=== PATIENT | male | born 1990 | race Caucasian/White ===

== ENCOUNTER 2019-04-03 14:50 | Emergency (ER) | payer OTHER ==
[2019-04-03 15:05] VITALS: TEMP 98
[2019-04-03 16:48] LABS: Appearance,Urine Clear (Clear); Bilirubin,Urine Negative (Negative); Blood,Urine Negative (Negative); Color,Urine Yellow; Glucose,Urine (UA) Negative (Negative); Ketones,Urine Negative (Negative); Leukocyte Esterase,Urine Negative (Negative); Nitrite,Urine Negative (Negative); Protein,Urine Negative (Negative); Specific Gravity,Urine 1.021 (1.001-1.035); Urobilinogen,Urine <2.0 mg/dL (<2.0)
--- NOTE | 2019-04-03 17:10 | US ---
EXAMINATION TYPE: US scrotum with doppler. Grayscale and color Doppler Duplex imaging performed of carlos mccormack scrotum. DATE OF EXAM: 04/03/2019 COMPARISON: NONE CLINICAL HISTORY: testicular pain x 1 month. Pt states testicular pain for quite some time, denies sw elling EXAM MEASUREMENTS: TESTICLES: Right Testicle: 3.9 x 1.8 x 1.9 cm Left Testicle: 2.7 x 1.2 x 2.1 cm EPIDIDYMIS HEAD: Right Epididymis: 1.2 cm Left Epididymis: Unable to visualize Doppler performed to assess for testicular vascularity; good bilateral color flow and waveforms are s een. There is no evidence of testicular torsion. Presence of hydroceles: No Presence of varicoceles: No Left testicle smaller in size when compared to right/ Otherwise no other abnormality could be appre ciated to account for pt's symptoms IMPRESSION: Small left testicle. No testicular torsion or mass. No free fluid.
[2019-04-03] MEDS ORDERED: AZITHROMYCIN 500 MG TAB PO STA (17:31)
[2019-04-03] MEDS ORDERED: cefTRIAXone 250 MG VIAL IM STA (17:31)
--- NOTE | 2019-04-03 17:32 | ED ---
Abdominal Pain HPI - General Chief Complaint: Abdominal Pain Stated Complaint: Male Time Seen by Provider: 04/03/19 16:00 Source: patient Mode of arrival: ambulatory Limitations: no limitations - History of Present Illness Initial Comments: 29-year-old male presented emergency department for evaluation of testicular pain 1 month. Patient states he has had testicular pain for the past month. Patient states it happens during intercourse. He states is mostly left-sided and the posterior aspect. Patient denies dysuria urgency frequency hematuria. Patient denies any weight loss abdominal pain pain in the groin. He states he only stated in triage a pain is his groin because he did not want to disclose that it was testicular pain. Patient denies any fevers night sweats. Patient denies a current concern for sexually transmitted diseases states he has been recently tested. Patient denies any penile lesions or any other complaints. Remaining review of systems negative. Upon arrival patient appears well now signs of acute distress. - Related Data Previous Rx's Medication Instructions Recorded Sulfamethox-Tmp 800-160Mg [Bactrim 1 tab PO Q12HR 10 Days #20 tab 04/03/19 DS 800-160 mg] Allergies Allergy/AdvReac Type Severity Reaction Status Date / Time No Known Allergies Allergy Verified 04/03/19 16:08 Review of Systems ROS Statement: Those systems with pertinent positive or pertinent negative responses have been documented in the HPI. ROS Other: All systems not noted in ROS Statement are negative. Past Medical History Past Medical History: Thyroid Disorder Additional Past Medical History / Comment(s): Asthma History of Any Multi-Drug Resistant Organisms: None Reported Past Surgical History: No Surgical Hx Reported Past Psychological History: Bipolar Smoking Status: Current some day smoker Past Alcohol Use History: None Reported Past Drug Use History: None Reported General Exam - General Exam Comments Initial Comments: General: The patient is awake and alert, in no distress, and does not appear acutely ill. Eye: Pupils are equal, round and reactive to light, extra-ocular movements are intact. No nystagmus. There is normal conjunctiva bilaterally. No signs of icterus. Cardiovascular: There is a regular rate and rhythm. No murmur, rub or gallop is appreciated. Respiratory: Lungs are clear to auscultation, respirations are non-labored, breath sounds are equal. No wheezes, stridor, rales, or rhonchi. Gastrointestinal: Soft, non-distended, non-tender abdomen without masses or organomegaly noted. There is no rebound or guarding present. Patient is tenderness to palpation of the left epididymis. There is no redness or erythema plus Cordar[place]. Patient has smaller left testicle in comparison with the right. Patient has no scrotal swelling or evidence of direct or indirect inguinal hernia. Cremasterics reflex intact. Vertical lie. Musculoskeletal: Normal ROM, no tenderness. Strength 5/5. Sensation intact. Pulses equal bilaterally 2+. Neurological: A&O x 3. CN II-XII intact grossly, There are no obvious motor or sensory deficits. Coordination appears grossly intact. Speech is normal. Skin: Skin is warm and dry and no rashes or lesions are noted. Psychiatric: Cooperative, appropriate mood & affect, normal judgment. Limitations: no limitations Course Vital Signs 04/03/19 04/03/19 04/03/19 15:03 15:59 17:37 Temperature 98.0 F Pulse Rate 88 86 Respiratory 18 18 16 Rate Blood Pressure 135/73 130/72 O2 Sat by Pulse 100 98 Oximetry Medical Decision Making - Medical Decision Making 29-year-old male presenting for chief complaint of testicular pain for 1 month. Patient has tenderness to palpation of the left epididymis. No redness. Patient denies fevers. Patient denies perineal tenderness. All show negative for acute process there is noted left sided smaller testicle to person with the right. This is palpated on examination. No findings of hernia on examination. Urinalysis unremarkable. Given the tenderness over the epididymis we will treat patient for epididymitis patient history for sexual transmitted diseases I prescription for Augmentin for 7 days. Patient is to follow up with urology. Return parameters discussed the patient is discharged appearing well case discussed with him prior Dr. Garner prior to d/c - Lab Data Lab Results 04/03/19 Range/Units 16:00 Urine Color Yellow Urine Appearance Clear (Clear) Urine pH 7.0 (5.0-8.0) Ur Specific [place] 1.021 (1.001-1.035) Urine Protein Negative (Negative) Urine Glucose (UA) Negative (Negative) Urine Ketones Negative (Negative) Urine Blood Negative (Negative) Urine Nitrite Negative (Negative) Urine Bilirubin Negative (Negative) Urine Urobilinogen <2.0 (<2.0) mg/dL Ur Leukocyte Esterase Negative (Negative) Disposition Clinical Impression: Testicular pain, left Disposition: HOME SELF-CARE Condition: Good Instructions (If sedation given, give patient instructions): Epididymitis (ED), Testicle Pain (ED) Additional Instructions: Please use medication as discussed. Please follow-up with urology in the next 1-2 weeks. Please return to emergency room if the symptoms increase or worsen or for any other concerns. Prescriptions: Sulfamethox-Tmp 800-160Mg [Bactrim DS 800-160 mg] 1 tab PO Q12HR 10 Days #20 tab Is patient prescribed a controlled substance at d/c from ED?: No Referrals: None,Stated [Primary Care Provider] - 1-2 days Luca Booth MD [STAFF PHYSICIAN] - As Soon As Possible Time of Disposition: 17:29
[2019-04-03 17:41] VITALS: BP 130/72; PULSE 86; RESP 16
== END 2019-04-03 17:37 | disposition home or self-care (01) ==
LOC: EC 14:50
DX: N50.812 Left testicular pain (principal); F17.200 Nicotine dependence, unspecified, uncomplicated
CPT/HCPCS: 81003; 93975; 76870; 99284; 96372; J0696

== ENCOUNTER → 2019-12-21 | Outpatient (CLI) | payer OTHER ==
[2019-12-21 13:57] LABS: Basophils # (A) 0.1 k/uL (0-0.2); Basophils % (A) 1 %; Eosinophils # (A) 0.5 k/uL (0-0.7); Eosinophils % (A) 9 %; HCT 45.8 % (39.0-53.0); HGB 15.3 gm/dL (13.0-17.5); Lymphocytes # (A) 1.4 k/uL (1.0-4.8); Lymphocytes % (A) 26 %; MCH 27.7 pg (25.0-35.0); MCHC 33.4 g/dL (31.0-37.0); MCV 82.7 fL (80.0-100.0); Mean Platelet Volume 7.5; Monocytes # (A) 0.4 k/uL (0-1.0); Monocytes % (A) 8 %; Neutrophils # (A) 3.1 k/uL (1.3-7.7); Neutrophils % (A) 55 %; Platelet Count 244 k/uL (150-450); RBC 5.53 m/uL (4.30-5.90); RDW 12.8 % (11.5-15.5); WBC 5.6 k/uL (3.8-10.6)
[2019-12-21 20:39] LABS: African American GFR (CKD) 116.5 (60.0-200.0); Albumin 4.3 g/dL (3.80-4.90); Albumin/Globulin Ratio 1.59 (1.60-3.17); Calcium 9.4 mg/dL (8.7-10.3); Chol/HDL Ratio 3.83; Globulin 2.7 g/dL (1.6-3.3); Non-African American GFR(CKD) 100.5 (60.0-200.0); Potassium 4.7 mmol/L (3.5-5.5); Total Bilirubin 0.5 mg/dL (0.2-1.2)
[2019-12-21 20:48] LABS: T4, Free (Free Thyroxine) 1.1 ng/dL (0.80-1.80)
[2019-12-21 21:53] LABS: Hemoglobin A1C 5.7 % (4.0-6.0)
== END | disposition home or self-care (01) ==
LOC: LABWHC1 13:01
PROVIDERS: ATTEND Psychiatry & Neurology Psychiatry
DX: F31.81 Bipolar II disorder (principal)
CPT/HCPCS: 36415; 80053; 80061; 82306; 83036; 84439; 84443; 85025